=== PATIENT | male | born 1995 | race Two or more races ===

== ENCOUNTER → 2022-11-09 | Emergency (ER) | payer OTHER ==
[~2022-11-09] VITALS: Ht 165.1 cm; Wt 63.0 kg
[~2022-11-09] MED LIST: CEFTRIAXONE 1 G VIAL IM ONE; CEFTRIAXONE 1 G VIAL ONE; DOXY100C2 PO; LIDOCAINE /MPF 1% VIAL 5 ML VIAL ONE
[2022-11-09 12:49] VITALS: BP 141/80
--- NOTE | 2022-11-09 13:34 | NUR ---
blood and genital sample collected and sent with phleb.
== END | disposition home or self-care (01) ==
LOC: ER 12:41
DX: A64 Unspecified sexually transmitted disease (principal)
CPT/HCPCS: 99283; 86592; 86593; 96372; 80074; 87806; 87491 ×2; 87591; J0696; J3490; 36415